=== PATIENT | male | born 1945 ===

== ENCOUNTER 2017-02-05 08:18 | Day surgery (SDC) | payer MEDICARE, OTHER ==
[2017-02-01 08:28] VITALS: BMI 26.0
[~2017-02-05 08:18] MED LIST: LACTATED RINGERS 1,000 ML IV SCH
[2017-02-05] MEDS: CYCLOPENTOLATE 1% OPHTH SOLN 2 ML BTL OP ONE ×3 (09:09→09:27)
[2017-02-05] MEDS: FLURBIPROFEN 0.03% OPHTH DROPS 2.5 ML BTL OP ONE ×3 (09:11→09:31)
[2017-02-05] MEDS: PHENYLEPHRINE 10% OPHTH DROPS 5 ML BTL OP ONE ×3 (09:14→09:32)
[2017-02-05 09:34] VITALS: RESP 18; TEMP 97.9
[2017-02-05] MEDS ORDERED: SODIUM CHLORIDE 0.9% 1,000 ML IV ONE (09:34)
[2017-02-05] MEDS ORDERED: PROPOFOL 10 MG/ML 20 ML VIAL IV ONE (09:40)
[2017-02-05] MEDS ORDERED: EPINEPHrine (PF) 0.5 ML in BALANCED SALT IRRIG SOLN COMB2 500 ML IRRIGATION ONE (09:48)
[2017-02-05] MEDS ORDERED: HYALURONATE SODIUM INTRAOCULAR 1 EACH SYRINGE (10MG/ML) INTRAOCULA ONE (09:52)
[2017-02-05] MEDS ORDERED: BALANCED SALT IRRIG SOLN COMB2 15 ML IRRIG.SOLN IRRIGATION ONE (09:52)
[2017-02-05 09:56] LABS: Glucose,Whole Blood 157 mg/dL (75-99)
--- NOTE | 2017-02-05 10:10 | P.OP ---
Date of Procedure: 02/05/17 Preoperative Diagnosis: Postoperative Diagnosis: Procedure(s) Performed: PREOPERATIVE DIAGNOSIS: Cataract, right eye. POSTOPERATIVE DIAGNOSIS: Cataract, right eye. OPERATION: Phacoemulsification cataract, right eye. DESCRIPTION OF PROCEDURE: The patient was taken to the preoperative holding area. Intravenous Propofol was given so as to bring about adequate sedation. The following mixture was given for local anesthesia: 5 mL of 2% lidocaine, 5 mL of 0.75% Marcaine, and 1 mL of Wydase. Approximately 4 mL was injected in the retrobulbar space of the surgical eye. Additional 1 mL was then directed to the temporal area of the surgical eye. This was performed to allow adequate neurological block of the facial muscles. The patient was revived and then taken into the operative room. The patient was prepped and draped in the usual sterile manner for the operative eye. A lid speculum was put into position. The conjunctiva was resected back from the limbus in the 12 o'clock position. Bleeding was controlled with electrocautery. A #69 blade was then used and a half-thickness scleral incision approximately 1-mm posterior to the limbus was made on bare sclera. This was shelved in the clear cornea using a crescent knife. Next a 15-degree blade was used to make a stab incision at the 3 o' clock position at the corneolimbal interface. Keratome blade was then used and the superior wound was extended into the anterior chamber. Viscoelastic was injected into the anterior chamber and to maintain its form. Next, a cystotome was used and a continuous anterior capsulotomy was made without difficulty. Hydrodissection using a blunt cannula and BSS was performed. Phaco probe was then employed and a groove extending from 12 to 6 o'clock in the lens was created. A Christofer wand was used through the stab incision so as to perform a divide and conquer technique. Next an irrigation aspiration probe was utilized and any residual cortex was removed from the eye. Again, viscoelastic was injected into the anterior chamber. An Andrae posterior chamber lens implant was placed in the cartridge and injected into the anterior chamber without difficulty. The DST[employer]ey hook was utilized to spin the lens into position and this was again performed without any difficulty. The irrigation and aspiration probe was again employed and any residual viscoelastic was removed from the eye. Then BSS was injected into the limbal stab incision and the anterior chamber re-inflated. The conjunctiva was reapproximated using electrocautery. One drop of 0.25% Timoptic was placed over the corneal along with TobraDex ophthalmic ointment. Two sterile patches and a Vyas eye shield were taped into position. The patient was transported to the recovery room in stable condition. Implants: Pathology: none sent Condition: stable Disposition: same day Indications for Procedure: Operative Findings: Description of Procedure:
[2017-02-05 10:20] LABS: Glucose,Whole Blood 156 mg/dL (75-99)
[2017-02-05 10:35] VITALS: BP 141/75; PULSE 78
[2017-02-05] MEDS ORDERED: GENTAMICIN/PREDNISOL AC OPHTH OINT 3.5GM OPHTHALMIC ONE (23:00)
[2017-02-05] MEDS ORDERED: BUPIVACAINE (PF) 0.75% 5 ML, LIDOCAINE 4% (PF) 5 ML, HYALURONIDASE, HUMAN RECOMB 150 UNIT MISCELLANE ONE ×3 (23:00)
[2017-02-05] MEDS ORDERED: TIMOLOL 0.5% OPHTH SOLN (PF) 0.2 ML DROPERETTE OP ONE (23:00)
== END 2017-02-05 10:55 | disposition home or self-care (01) ==
LOC: OR 08:18
PROVIDERS: ATTEND Ophthalmology
DX: H25.13 Age-related nuclear cataract, bilateral (principal); I12.0 Hypertensive chronic kidney disease with stage 5 chronic kidney disease or end stage renal disease; N18.6 End stage renal disease; K21.9 Gastro-esophageal reflux disease without esophagitis; Z99.2 Dependence on renal dialysis; E11.9 Type 2 diabetes mellitus without complications; K44.9 Diaphragmatic hernia without obstruction or gangrene; Z79.4 Long term (current) use of insulin; Z79.899 Other long term (current) drug therapy; Z82.49 Family history of ischemic heart disease and other diseases of the circulatory system; Z83.3 Family history of diabetes mellitus
CPT/HCPCS: 66984; V2632; J2001; J3470; J0171; J2704

== ENCOUNTER 2017-10-22 08:00 | Day surgery (SDC) | payer MEDICARE, OTHER ==
[2017-10-15 15:59] VITALS: BMI 25.4
[2017-10-22] MEDS ORDERED: LIDOCAINE 1% 20 ML VIAL (10MG/ML) FOR IV START INTRADERMA ONE (08:04)
[2017-10-22] MEDS: CYCLOPENTOLATE 1% OPHTH SOLN 2 ML BTL OP ONE ×3 (09:03→09:25)
[2017-10-22] MEDS: FLURBIPROFEN 0.03% OPHTH DROPS 2.5 ML BTL OP ONE ×3 (09:07→09:29)
[2017-10-22 09:10] LABS: Glucose,Whole Blood 111 mg/dL (75-99)
[2017-10-22] MEDS: PHENYLEPHRINE 10% OPHTH DROPS 5 ML BTL OP ONE ×2 (09:10→09:19)
[2017-10-22 09:14] VITALS: TEMP 98.6
[2017-10-22] MEDS ORDERED: SODIUM CHLORIDE 0.9% 1,000 ML IV ONE (09:34)
[2017-10-22] MEDS ORDERED: MIDAZOLAM 2 MG/2 ML VIAL ONE (09:45)
[2017-10-22] MEDS ORDERED: fentaNYL (PF) 50 MCG/ML 2 ML AMP ONE (09:45)
[2017-10-22] MEDS ORDERED: PROPOFOL 10 MG/ML 20 ML VIAL IV ONE (09:45)
[2017-10-22] MEDS ORDERED: EPINEPHrine (PF) 0.5 ML in BALANCED SALT IRRIG SOLN COMB2 500 ML IRRIGATION ONE (09:48)
[2017-10-22] MEDS ORDERED: BALANCED SALT IRRIG SOLN COMB2 15 ML IRRIG.SOLN IRRIGATION ONE (09:50)
[2017-10-22] MEDS ORDERED: HYALURONATE SODIUM INTRAOCULAR 1 EACH SYRINGE (10MG/ML) INTRAOCULA ONE (09:51)
--- NOTE | 2017-10-22 10:06 | P.OP ---
Date of Procedure: 10/22/17 Procedure(s) Performed: PREOPERATIVE DIAGNOSIS: Cataract, left eye. POSTOPERATIVE DIAGNOSIS: Cataract, left eye. OPERATION: Phacoemulsification cataract, left eye. DESCRIPTION OF PROCEDURE: The patient was taken to the preoperative holding area. Intravenous Propofol was given so as to bring about adequate sedation. The following mixture was given for local anesthesia: 5 mL of 2% lidocaine, 5 mL of 0.75% Marcaine, and 1 mL of Wydase. Approximately 4 mL was injected in the retrobulbar space of the surgical eye. Additional 1 mL was then directed to the temporal area of the surgical eye. This was performed to allow adequate neurological block of the facial muscles. The patient was revived and then taken into the operative room. The patient was prepped and draped in the usual sterile manner for the operative eye. A lid speculum was put into position. The conjunctiva was resected back from the limbus in the 12 o'clock position. Bleeding was controlled with electrocautery. A #69 blade was then used and a half-thickness scleral incision approximately 1-mm posterior to the limbus was made on bare sclera. This was shelved in the clear cornea using a crescent knife. Next a 15-degree blade was used to make a stab incision at the 3 o' clock position at the corneolimbal interface. Keratome blade was then used and the superior wound was extended into the anterior chamber. Viscoelastic was injected into the anterior chamber and to maintain its form. Next, a cystotome was used and a continuous anterior capsulotomy was made without difficulty. Hydrodissection using a blunt cannula and BSS was performed. Phaco probe was then employed and a groove extending from 12 to 6 o'clock in the lens was created. A Christofer wand was used through the stab incision so as to perform a divide and conquer technique. Next an irrigation aspiration probe was utilized and any residual cortex was removed from the eye. Again, viscoelastic was injected into the anterior chamber. An Andrae posterior chamber lens implant was placed in the cartridge and injected into the anterior chamber without difficulty. The [employer] hook was utilized to spin the lens into position and this was again performed without any difficulty. The irrigation and aspiration probe was again employed and any residual viscoelastic was removed from the eye. Then BSS was injected into the limbal stab incision and the anterior chamber re-inflated. The conjunctiva was reapproximated using electrocautery. One drop of 0.25% Timoptic was placed over the corneal along with TobraDex ophthalmic ointment. Two sterile patches and a Vyas eye shield were taped into position. The patient was transported to the recovery room in stable condition. Pathology: none sent Condition: stable Disposition: same day
[2017-10-22 10:47] VITALS: BP 142/67; PULSE 57; RESP 20
[2017-10-22] MEDS ORDERED: TIMOLOL 0.5% OPHTH DROPS 5 ML BTL OP ONE (23:00)
[2017-10-22] MEDS ORDERED: GENTAMICIN/PREDNISOL AC OPHTH OINT 3.5GM OPHTHALMIC ONE (23:00)
[2017-10-22] MEDS ORDERED: BUPIVACAINE (PF) 0.75% 5 ML, HYALURONIDASE, HUMAN RECOMB 150 UNIT, LIDOCAINE 2% (PF) 10... MISCELLANE ONE ×3 (23:00)
== END 2017-10-22 10:58 | disposition home or self-care (01) ==
LOC: OR 08:00
PROVIDERS: ATTEND Ophthalmology
DX: E11.36 Type 2 diabetes mellitus with diabetic cataract (principal); Z94.0 Kidney transplant status; K21.9 Gastro-esophageal reflux disease without esophagitis; I10 Essential (primary) hypertension; E78.5 Hyperlipidemia, unspecified; Z79.82 Long term (current) use of aspirin; Z79.4 Long term (current) use of insulin; Z79.52 Long term (current) use of systemic steroids; Z79.899 Other long term (current) drug therapy
CPT/HCPCS: 84132; 66984; V2632; J2250; J3470; J2001; J0171; J3010; J2704